=== PATIENT | female | born 1945 | race Caucasian/White ===

== ENCOUNTER 2018-11-16 20:06 | Emergency (ER) | payer BC, OTHER ==
[~2018-11-16] VITALS: Ht 149.9 cm; Wt 45.4 kg
[2018-11-16] MEDS ORDERED: SODIUM CHLORIDE 0.9% 500 ML IV ONE ×2 (21:00→23:15)
[2018-11-16] MEDS ORDERED: LEVOFLOXACIN 750MG 150 ML IV ONE (21:00)
[2018-11-16] MEDS ORDERED: ACETAMINOPHEN 650 mg PER 20 mL UD PO ONE (21:00)
[2018-11-16 21:28] LABS: Lymphocytes # (auto) 0.3 uL; Monocytes # (auto) 0.4 uL; Neutrophils # (auto) 6.4 uL; White Blood Cell 7.3 10^3/uL (4.4-10.8)
[2018-11-16 21:31] LABS: Basophils # (auto) 0.1 uL; Basophils % (auto) 1.4 % (0.0-2.0); Eosinophils # (auto) 0 uL; Eosinophils % (auto) 0.6 % (0.0-7.0); Hemoglobin 12.5 g/dL (12.2-16.2); Lymphocytes % (auto) 4.2 % (10.0-50.0); Mean Corpuscular Hemoglobin 31.1 pg (28.0-32.0); Mean Corpuscular Hgb Conc. 32.9 g/dL (32.0-36.0); Mean Corpuscular Volume 94.6 fL (80.0-100.0); Monocytes % (auto) 5.8 % (0.0-12.0); Nucleated Red Blood Cells % 0.1 %; Platelet Count (auto) 490 10^3/uL (140-450); Red Blood Cells 4.02 10^6/uL (4.0-5.20); Red Cell Distribution Width 15.9 % (11.8-14.3)
[2018-11-16 21:33] LABS: Alanine Aminotransferase 20 U/L (13-56); Albumin 3.6 g/dL (3.4-5.0); Anion Gap 13 (5-15); Aspartate Aminotransferase 17 U/L (15-37); BUN/Creatinine Ratio 13.5; Blood Urea Nitrogen 7 mg/dL (7-18); Calcium 9.1 mg/dL (8.5-10.1); Carbon Dioxide 20 mmol/L (21-32); Chloride 100 mmol/L (98-107); Glucose 130 mg/dL (74-106); Potassium 3.9 mmol/L (3.5-5.1); Sodium 133 mmol/L (136-145)
[2018-11-16 21:37] LABS: Alkaline Phosphatase 100 U/L (45-117); Bilirubin, Total 0.6 mg/dL (0.2-1.0); Total Protein 7.6 g/dL (6.4-8.2)
[2018-11-16 21:41] LABS: Urine Bacteria NONE SEEN /hpf (None Seen); Urine Blood Negative /uL (Negative); Urine Mucus FEW (None Seen); Urine Specific Gravity 1.008 (1.001-1.035); Urine WBC 6 /hpf (0 - 5)
[2018-11-16 21:42] LABS: GFR African American > 60 mL/min; GFR Non-African American > 60 mL/min
[2018-11-16] MEDS: SODIUM CHLORIDE 0.9% 500 ML IV ONE ×2 (23:10→23:40)
[2018-11-16 23:35] VITALS: BP 140/71
== END 2018-11-17 00:05 | disposition home or self-care (01) ==
LOC: ER 20:30
DX: R41.82 Altered mental status, unspecified (principal); N39.0 Urinary tract infection, site not specified; E11.9 Type 2 diabetes mellitus without complications; I10 Essential (primary) hypertension; Z86.73 Personal history of transient ischemic attack (TIA), and cerebral infarction without residual deficits
CPT/HCPCS: 36415; 51702; 71045; 80053; 81001; 83605; 84484; 85025; 87040; 93005; 96361; 96365; 99284; J1956; J7030